=== PATIENT | male | born 2005 | race Caucasian/White ===

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

== ENCOUNTER 2024-03-24 17:34 | Emergency (ER) | payer BC, SELFPAY ==
[2024-03-24 17:43] VITALS: BP 114/74; PULSE 81; RESP 20; TEMP 36.7; O2SAT 96
[2024-03-24 17:45] VITALS: BP 114/74; PULSE 81; RESP 20; TEMP 36.7; O2SAT 96
--- NOTE | 2024-03-24 18:00 | DI.RAD_ITS ---
Exam(s) XR CHEST 2V PA LATERAL EXAM: XR CHEST 2V PA LATERAL CLINICAL HISTORY: cough, fever, shortness of breath TECHNIQUE: 2D digital imaging was performed. Two views. COMPARISON: CR XR CHEST 2V PA LATERAL from 09/23/2023 FINDINGS: HEART: Normal size. Aorta: Not dilated. PULMONARY VASCULATURE: Normal. MEDIASTINUM: Unremarkable. LUNGS: Clear. PLEURAL SPACE: No pleural effusion or pneumothorax. BONE:Unremarkable for age. SOFT TISSUES: Unremarkable. IMPRESSION: No acute abnormality. DATA REPOSITORY: RADIATION DOSE DELIVERED:
[2024-03-24 18:56] VITALS: BP 112/74; PULSE 62
[2024-03-24] MEDS: Albuterol HFA 8 GM 60 PUFF INH IH (19:11)
[2024-03-24] MEDS: Dexamethasone 10 MG/ML VIAL PO (19:12)
[2024-03-24] MEDS: Inhaler, Assist Device 1 EACH MC (19:12)
--- NOTE | 2024-03-24 21:47 | W.ED.GENAD ---
Discharge Plan Disposition Patient Disposition: Home Condition: Stable Discharge Details Clinical Impression: Bronchitis Primary Care Provider: Anisa Alvarez V ED Provider: Juliette Mueller Home Meds and New Rx's Prescriptions: Continued fluoxetine 40 mg capsule 80 mg PO DAILY Discharge Instructions Instructions: Acute bronchitis Additional Instructions: albuterol 2 puff every 4-6 hours as needed for cough, wheeze, shortness of breath the Decadron or steroid will work for approximately 3 days to decrease inflammation in your cough Your chest x-ray does not show evidence of pneumonia, should your symptoms persist longer than an additional week please be reevaluated Referrals: Anisa Alvarez MD [Primary Care Provider] - 1 week Discharge Data Discharge Date/Time-TO BE ENTERED AT DEPARTURE: 03/24/24 19:17 HPI General Date/Time Provider Initiated Documentation: 03/24/24 18:07. HPI Narrative: The patient is a 18-year-old male presenting with a cough and shortness of breath. He has been experiencing these symptoms for approximately 7 days, with a mild improvement noted today. He was concerned regarding yellow sputum production. He has not vomited since the but has had some intermittent nausea and vomiting. He does not report any fever or chills, known sick contacts, or diarrhea. Otherwise, he is reportedly healthy. Related Data Home Medications ?Medication ?Instructions ?Recorded ?Confirmed fluoxetine 40 mg capsule 80 mg PO DAILY 07/22/23 03/24/24 Allergies Allergy/AdvReac Type Severity Reaction Status Date / Time No Known Allergies Allergy Verified 03/24/24 17:46 General Stated Complaint: RespSymp NIDHI: 4 Exam Narrative Exam Narrative: General Appearance: The patient is alert and oriented, not in acute distress. Vital signs: Within normal limits. HEENT: Within normal limits. Respiratory: Lungs are clear to auscultation. Cardiovascular: Cardiac rate and rhythm are regular. Gastrointestinal: Abdomen is nontender. Skin: Warm and dry, no rash. Neurological: Normal. Course Vital Signs Vital signs: Vital Signs Temperature 36.7 C 03/24/24 17:43 Pulse 81 03/24/24 17:43 Respiratory Rate 20 03/24/24 17:43 Blood Pressure 114/74 03/24/24 17:43 Pulse Oximetry 96 03/24/24 17:43 Temperature 36.7 C 03/24/24 17:45 Pulse 62 03/24/24 18:56 Respiratory Rate 20 03/24/24 17:45 Respiratory Effort Normal 03/24/24 18:55 Respiratory Depth Normal 03/24/24 18:55 Blood Pressure 112/74 03/24/24 18:56 Blood Pressure Mean 86 03/24/24 18:56 Blood Pressure Position Sitting 03/24/24 17:45 Pulse Oximetry 96 03/24/24 17:45 Oxygen Delivery Method Room Air 03/24/24 17:45 Oxygen Flow Rate 0 03/24/24 17:45 Medical Decision Making Imaging Chest x-ray shows no evidence of acute abnormality. Initial Assessment: 18-year-old male with a 7-day history of cough and shortness of breath, mild improvement today, concerned about yellow sputum production, intermittent nausea and vomiting, no fever, chills, known sick contacts, or diarrhea, otherwise healthy. ED Course: - Chest x-ray ordered, no evidence of acute abnormality, lungs clear to auscultation (read by me) - Inhaler provided for cough relief as needed - Single dose of Decadron administered for bronchospasm, expected to last 72 hours - Vaping cessation reviewed - Advised to return if new or worsening symptoms Final Assessment: Patient with likely viral syndrome, expected to self-resolve. Treatment included inhaler for cough, Decadron for bronchospasm, and patient education on vaping cessation. Clinical Impression: - Cough - Shortness of breath Disposition: - Discharge MDM Components Evaluation: - Number of Differential Diagnoses or Management Options: Viral syndrome - Amount and Complexity of Data Reviewed: Chest x-ray - Risk of Complication and Morbidity or Mortality: Low, given the likely viral nature of the symptoms and absence of acute abnormalities. Quality:SDOH Health Related Social Needs: No Data to Display PFSH All Active Problems (Updated 03/24/24 @ 19:02 by CATHY Ricardo) Bronchitis (Acute) Oscar-Schlatter's disease of left lower extremity (Acute 10/03/16) Biceps tendonitis on left (Acute) Lateral epicondylitis of left elbow (Acute) Pain of ulnar side of wrist (Acute) bilateral Lumbar back pain (Acute) Depersonalization-derealization disorder (Acute) Atypical nevus of back (Acute 11/13/11) Phimosis (Acute 10/03/16) Normal weight, pediatric, BMI 5th to 84th percentile for age (Acute 10/03/16) Routine sports examination for healthy child or adolescent (Acute 10/03/16) Medical History Anxiety (12/08/13) 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 Psych eval at [facility] 01/28 and f/u 11/29. 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 Family History Mother Healthy adult on routine physical examination Father Healthy adult on routine physical examination Paternal Grandmother Mental health disorder severe, of uncertain nature, but requiring hospitalization Paternal Aunt Bipolar affective disorder Social History Smoking/Tobacco Use Status: Never Second Hand Exposure: No Smoking risk assessment performed?: Yes Alcohol Intake: current Alcohol Intake frequency: other Alcohol type: beer and hard liquor Drug use: Daily Substance use type: marijuana Adopted: No Foster care: No Housing: house Communication Needs: None Education Level: high school Details: 12th grade, [employer] () Pets and animals: Yes (1 dog) Pets and animals: dog(s) Current gender identity: male What type of physical activity do you participate in: other Details: Soccer, lacrosse, nordic skiing, biking Seatbelt use: always Helmet use: Yes Helmet use: always Water heater temp set <120 deg: Yes Fire extinguisher in home: Yes Carbon monox detector in home: Yes Firearms in home: No Do you feel safe at home: Yes Do you feel safe in your relationship?: Yes
== END 2024-03-24 19:17 | disposition home or self-care (01) ==
PROVIDERS: Emergency Provider Physician Assistant; PCP Family Medicine
DX: R06.02 Shortness of breath; R11.2 Nausea with vomiting, unspecified; J40 Bronchitis, not specified as acute or chronic
CPT/HCPCS: 99283; 71046; J1100